=== PATIENT | female | born 1995 | race African-American/Black ===

== ENCOUNTER 2023-03-27 15:49 | Emergency (ER) | payer SELFPAY ==
[~2023-03-27] VITALS: Ht 157.5 cm; Wt 67.0 kg
[2023-03-27 15:59] VITALS: TEMP 98.8; O2SAT 98
[2023-03-27] MEDS ORDERED: METOCLOPRAMIDE HCL 10MG/2ML VIAL IM ONE (17:45)
[2023-03-27] MEDS ORDERED: KETOROLAC 15MG/ML VIAL IM ONE (17:45)
[2023-03-27 17:53] VITALS: BP 116/84; PULSE 105; RESP 18
[2023-03-27] MEDS ORDERED: NAPR-1176 MT (18:24)
== END 2023-03-27 19:06 | disposition home or self-care (01) ==
LOC: ER 15:49
DX: S00.93XA Contusion of unspecified part of head, initial encounter (principal); W18.39XA Other fall on same level, initial encounter; Y93.89 Activity, other specified; Y92.89 Other specified places as the place of occurrence of the external cause; Y99.8 Other external cause status
CPT/HCPCS: 99285; 70450; 81025; 96372; J1885; J2765